=== PATIENT | male | born 1980 | race Two or more races ===

== ENCOUNTER 2018-03-20 13:38 | Day surgery (SDC) | payer OTHER ==
[2018-03-20] MEDS ORDERED: LIDOCAINE 4% SOLUTION 50 ML BTL (14:45)
[2018-03-20] MEDS ORDERED: FENTAnyl 50 MCG/ML VIAL (15:29)
[2018-03-20] MEDS ORDERED: MIDAZOLAM 1 MG/ML 2 ML INJ ×2 (15:29→15:30)
== END 2018-03-20 16:03 | disposition home or self-care (01) ==
LOC: GIL 13:38
DX: K29.50 Unspecified chronic gastritis without bleeding (principal); K20.9 Esophagitis, unspecified; K26.9 Duodenal ulcer, unspecified as acute or chronic, without hemorrhage or perforation
CPT/HCPCS: 43239; 88305; 88312